=== PATIENT | male | born 1990 | race Caucasian/White ===

== ENCOUNTER 2023-09-21 05:05 | Outpatient (CLI) | payer MEDICAID, SELFPAY ==
[2023-09-21 12:23] LABS: HCT 48.5 % (40.0-50.0); HGB 16.4 g/dL (13.5-17.5); MCH 29.3 pg (27.0-33.0); MCHC 33.8 % (32.0-36.0); MCV 87 fL (80-95); MPV 9.5 fL (8.0-11.0); Platelet Count 210 10^3/uL (130-400); RBC 5.59 10^6/uL (4.36-5.78); RDW 12.2 % (11.8-14.1); RDW-SD 39.1 fL; WBC 6.58 10^3/uL (4.4-10.8)
[2023-09-21 12:59] LABS: Hemoglobin A1C 5.2 % (<5.7)
[2023-09-21 13:12] LABS: ALT 79 U/L (16-63); AST 30 U/L (15-37); Albumin 3.9 g/dL (3.4-5.0); Alkaline Phosphatase 63 U/L (46-116); Anion Gap 10.2 mmol/L (3-11); BUN 15 mg/dL (7-18); Bilirubin, Total 0.7 mg/dL (0.2-1.0); CO2 28.8 mmol/L (21.0-32.0); CREATININE 1.2 mg/dL (0.70-1.30); Calcium 8.8 mg/dL (8.5-10.1); Calculated LDL 124 mg/dL (<100); Chloride 105 mmol/L (98-107); Cholesterol 192 mg/dL (<200); Estimated GFR 81.89 (mL/min/1.73m2); Glucose 86 mg/dL (74-106); HDL Cholesterol 39 mg/dL (40-60); Potassium 4.4 mmol/L (3.5-5.1); Sodium 144 mmol/L (136-145); TSH (W/Ref FT4) 2.17 uIU/mL (0.36-3.74); Total Protein 6.4 g/dL (6.4-8.2); Triglyceride 145 mg/dL (<150)
[2023-09-22 10:41] LABS: Lyme Ab w Rflx to Lyme Confirm Negative (Negative)
[2023-09-24 15:36] LABS: Anaplasma phagocytophilum Negative (Negative); B. miyamotoi PCR Negative (Negative); Babesia divergens/MO-1 Negative (Negative); Babesia duncani Negative (Negative); Babesia microti Negative (Negative); Ehrlichia chaffeensis Negative (Negative); Ehrlichia ewingii/canis Negative (Negative); Ehrlichia muris eauclairensis Negative (Negative)
== END 2023-09-21 05:06 | disposition home or self-care (01) ==
LOC: LOS 05:05
PROVIDERS: PCP Nurse Practitioner Family; Visit Provider Nurse Practitioner Family
DX: R53.83 Other fatigue (principal); R09.81 Nasal congestion; Z86.19 Personal history of other infectious and parasitic diseases; B35.1 Tinea unguium
CPT/HCPCS: 36415; 80053; 80061; 85027; 87798; 83036; 84443; 86618

== ENCOUNTER 2025-04-16 01:20 | Outpatient (CLI) | payer MEDICAID, SELFPAY ==
[2025-04-16 16:06] LABS: ALT 149 U/L (16-63); AST 59 U/L (15-37); Albumin 4.2 g/dL (3.4-5.0); Alkaline Phosphatase 66 U/L (46-116); Anion Gap 8.4 mmol/L (3-11); BUN 12 mg/dL (7-18); Bilirubin, Total 1.0 mg/dL (0.2-1.0); CO2 28.6 mmol/L (21.0-32.0); Calcium 9.0 mg/dL (8.5-10.1); Calculated LDL 142 mg/dL (<100); Chloride 99 mmol/L (98-107); Cholesterol 212 mg/dL (<200); Estimated GFR 81.38 (mL/min/1.73m2); Glucose 91 mg/dL (74-106); HDL Cholesterol 46 mg/dL (>or=40); Potassium 4.1 mmol/L (3.5-5.1); Sodium 136 mmol/L (136-145); Total Protein 7.4 g/dL (6.4-8.2); Triglyceride 123 mg/dL (<150)
== END 2025-04-16 01:21 | disposition home or self-care (01) ==
LOC: LBO 01:20
PROVIDERS: PCP Nurse Practitioner Family; Visit Provider Nurse Practitioner Family
DX: Z00.00 Encounter for general adult medical examination without abnormal findings (principal); F90.9 Attention-deficit hyperactivity disorder, unspecified type
CPT/HCPCS: 36415; 80053; 80061